=== PATIENT | male | born 1930 | race African-American/Black ===

== ENCOUNTER → 2017-01-19 | Day surgery (SDC) | payer MEDICARE, BC ==
[~2017-01-19] VITALS: Ht 172.7 cm; Wt 70.3 kg
[~2017-01-19] MED LIST: AMLO5TAB4 PO; ASPI-1159 PO; ATOR40TA70 PO; BISA-81 PO; CEFAZOLIN SODIUM 1000MG/VIAL ONE; ESMOLOL HCL 10MG/ML 10ML VIAL IV ONE; FENTANYL CITRATE/PF 50MCG/ML 2ML VIAL ONE; HYDROMORPHONE HCL/PF 2MG/ML CPJ IV PRN; LACTATED RINGERS 1,000 ML IV SCH; LIDOCAINE HCL 1% 20ML VIAL (Pyxis) INJ ONE; LISI40TA4 PO; METO-296 PO; ONDANSETRON HCL 4MG/2ML VIAL IV PRN; ONDANSETRON HCL 4MG/2ML VIAL ONE; PROPOFOL 200MG/20ML VIAL IV ONE; SODIUM CHLORIDE 0.9% 1,000 ML IV SCH; TAMS-11 PO
== END | disposition home or self-care (01) ==
LOC: OR 10:43
PROVIDERS: ATTEND Urology
DX: C67.6 Malignant neoplasm of ureteric orifice (principal); I10 Essential (primary) hypertension; Z87.891 Personal history of nicotine dependence; Z85.45 Personal history of malignant neoplasm of unspecified male genital organ; D64.9 Anemia, unspecified; J44.9 Chronic obstructive pulmonary disease, unspecified; Z98.49 Cataract extraction status, unspecified eye; Z95.1 Presence of aortocoronary bypass graft; Z90.5 Acquired absence of kidney; Z88.2 Allergy status to sulfonamides
CPT/HCPCS: 52235; 71010; 88305; 93005; J0690; J2405; J3010; J3490; J7120; J2704

== ENCOUNTER 2017-07-11 05:37 | Day surgery (SDC) | payer MEDICARE, BC ==
[~2017-07-11] VITALS: Ht 170.2 cm; Wt 71.2 kg
[~2017-07-11 05:37] MED LIST changes: -CEFAZOLIN SODIUM 1000MG/VIAL ONE; -ESMOLOL HCL 10MG/ML 10ML VIAL IV ONE; -FENTANYL CITRATE/PF 50MCG/ML 2ML VIAL ONE; -HYDROMORPHONE HCL/PF 2MG/ML CPJ IV PRN; -LACTATED RINGERS 1,000 ML IV SCH; -LIDOCAINE HCL 1% 20ML VIAL (Pyxis) INJ ONE; -LISI40TA4 PO; -METO-296 PO; +METO-396 PO; -ONDANSETRON HCL 4MG/2ML VIAL IV PRN; -ONDANSETRON HCL 4MG/2ML VIAL ONE; -PROPOFOL 200MG/20ML VIAL IV ONE; -SODIUM CHLORIDE 0.9% 1,000 ML IV SCH
[2017-07-11 06:28] LABS: CLARITY URINE TURBID (CLEAR); COLOR URINE RED (YELLOW); KETONES URINE NEGATIVE (NEGATIVE); LEUKOCYTE ESTERASE URINE 1+ (NEGATIVE); NITRITE URINE POSITIVE (NEGATIVE); OCCULT BLOOD URINE 3+ (NEGATIVE); PH URINE 7.5 (4.5-8.0); PROTEIN URINE 2+ (NEGATIVE); SPECIFIC GRAVITY URINE 1.011 (1.005-1.030); UROBILINOGEN URINE 0.2 E.U./dL (0.2-1.0)
[2017-07-11 06:39] LABS: BASOPHILS % 0.7 % (0.0-2.0); EOSINOPHILS % 8.1 % (0.0-5.0); HEMATOCRIT. 31.6 % (42.0-52.0); HEMOGLOBIN. 9.9 g/dL (14.0-18.0); LYMPHOCYTES % 23.6 % (20.0-50.0); MEAN CORPUSCULAR HEMOGLOBIN 28.6 pg (28.0-32.0); MEAN CORPUSCULAR VOLUME 91.5 fL (80.0-94.0); MEAN PLATELET VOLUME 7.5 fl (7.4-10.4); MONOCYTES % 12.2 % (2.0-8.0); NEUTROPHILS % 55.4 % (40.0-76.0); PLATELET 117 x1000/uL (130-400); RED BLOOD CELL COUNT 3.45 mill/uL (4.7-6.1); RED CELL DISTRIBUTION WIDTH 18.7 % (11.6-14.6)
[2017-07-11] MEDS ORDERED: LACTATED RINGERS 1,000 ML IV SCH (06:40)
[2017-07-11 06:54] LABS: INR 1.1; PARTIAL THROMBOPLASTIN TIME 27.2 sec (23.4-31.0); PROTHROMBIN TIME 11.8 sec (9.4-11.6)
[2017-07-11] MEDS ORDERED: IBUP200C48 PO (07:05)
[2017-07-11] MEDS ORDERED: FENTANYL CITRATE/PF 50MCG/ML 2ML VIAL ONE (07:26)
[2017-07-11] MEDS ORDERED: ROCURONIUM BROMIDE 10MG/ML VIAL 5ML IV ONE (07:28)
[2017-07-11] MEDS ORDERED: CEFAZOLIN SODIUM 1000MG/VIAL ONE (07:28)
[2017-07-11] MEDS ORDERED: LIDOCAINE HCL/PF 1% 10 MG/ML 5ML VIAL ONE (07:28)
[2017-07-11] MEDS ORDERED: PROPOFOL 200MG/20ML VIAL IV ONE (07:28)
[2017-07-11] MEDS ORDERED: NEOSTIGMINE METHYLSULFATE 1MG/ML 10 ML VIAL ONE (08:05)
[2017-07-11] MEDS ORDERED: ONDANSETRON HCL 4MG/2ML VIAL ONE (08:05)
[2017-07-11] MEDS ORDERED: GLYCOPYRROLATE 0.2 MG/ML 2ML VIAL ONE (08:05)
[2017-07-11] MEDS ORDERED: METOCLOPRAMIDE HCL 10MG/2ML VIAL ONE (08:05)
== END 2017-07-11 10:30 | disposition home or self-care (01) ==
LOC: OR 05:37
PROVIDERS: ATTEND Urology
DX: C67.9 Malignant neoplasm of bladder, unspecified (principal); J44.9 Chronic obstructive pulmonary disease, unspecified; I13.10 Hypertensive heart and chronic kidney disease without heart failure, with stage 1 through stage 4 chronic kidney disease, or unspecified chronic kidney disease; N18.1 Chronic kidney disease, stage 1; I25.10 Atherosclerotic heart disease of native coronary artery without angina pectoris; D69.6 Thrombocytopenia, unspecified; D50.0 Iron deficiency anemia secondary to blood loss (chronic); Z95.1 Presence of aortocoronary bypass graft; Z85.51 Personal history of malignant neoplasm of bladder
CPT/HCPCS: 36415; 52235; 80048; 81001; 85025; 85610; 85730; 88305; 93005; J0690; J2405; J2710; J2765; J3010; J3490; J7120; J2704

== ENCOUNTER 2017-09-06 10:46 | Day surgery (SDC) | payer MEDICARE, BC ==
[~2017-09-06 10:46] MED LIST changes: +IBUP200C48 PO
[2017-09-06] MEDS ORDERED: LACTATED RINGERS 1,000 ML IV ONE (11:45)
[2017-09-06 12:19] LABS: CLARITY URINE CLOUDY (CLEAR); COLOR URINE RED (YELLOW); KETONES URINE NEGATIVE (NEGATIVE); LEUKOCYTE ESTERASE URINE NEGATIVE (NEGATIVE); NITRITE URINE NEGATIVE (NEGATIVE); OCCULT BLOOD URINE 3+ (NEGATIVE); PH URINE 7.5 (4.5-8.0); PROTEIN URINE 2+ (NEGATIVE); SPECIFIC GRAVITY URINE 1.014 (1.005-1.030); UROBILINOGEN URINE 0.2 E.U./dL (0.2-1.0)
[2017-09-06] MEDS ORDERED: MIDAZOLAM HCL 2 MG/2 ML VIAL ONE (13:03)
[2017-09-06] MEDS ORDERED: PROPOFOL 200MG/20ML VIAL IV ONE (13:03)
[2017-09-06] MEDS ORDERED: FENTANYL CITRATE/PF 50MCG/ML 2ML VIAL ONE (13:03)
[2017-09-06] MEDS ORDERED: LIDOCAINE HCL/PF 1% 10 MG/ML 5ML VIAL ONE (13:11)
[2017-09-06] MEDS ORDERED: EPHEDRINE SULFATE 50MG/ML VIAL ONE (13:15)
[2017-09-06] MEDS ORDERED: CEFAZOLIN SODIUM 1000MG/VIAL ONE (13:15)
[2017-09-06] MEDS ORDERED: ONDANSETRON HCL 4MG/2ML VIAL IV PRN (14:15)
[2017-09-06] MEDS ORDERED: HYDROMORPHONE HCL/PF 2MG/ML CPJ IV PRN (14:15)
[2017-09-06] MEDS ORDERED: MEPERIDINE HCL/PF 25MG/ML CPJ IV PRN (14:15)
[2017-09-06] MEDS ORDERED: IOHEXOL-300 100 ML BOTTLE ONE (15:23)
[2017-09-06] MEDS ORDERED: SODIUM CHLORIDE 0.9% 1,000 ML IV NR (16:00)
== END 2017-09-06 16:50 | disposition home or self-care (01) ==
LOC: OR 10:46
PROVIDERS: ATTEND Urology
DX: N32.89 Other specified disorders of bladder (principal); R31.0 Gross hematuria; I25.10 Atherosclerotic heart disease of native coronary artery without angina pectoris; E78.00 Pure hypercholesterolemia, unspecified; J44.9 Chronic obstructive pulmonary disease, unspecified; N40.0 Benign prostatic hyperplasia without lower urinary tract symptoms; I10 Essential (primary) hypertension; I71.4 Abdominal aortic aneurysm, without rupture; Z85.51 Personal history of malignant neoplasm of bladder; Z85.528 Personal history of other malignant neoplasm of kidney; Z87.891 Personal history of nicotine dependence; Z88.2 Allergy status to sulfonamides; Z90.5 Acquired absence of kidney; Z95.1 Presence of aortocoronary bypass graft; Z98.890 Other specified postprocedural states; Z79.899 Other long term (current) drug therapy; Z79.82 Long term (current) use of aspirin
CPT/HCPCS: 36415; 52001; 52204; 71045; 74177; 80048; 81003; 88305; 93005; J0690; J2250; J3010; J3490; J7120; Q9967; J2704